=== PATIENT | female | born 1935 ===

== ENCOUNTER → 2016-09-08 | Outpatient (CLI) | payer MEDICARE, BC ==
[~2016-09-08] MED LIST: ASPIRIN EC81 MG PO; FISH OIL300 MG PO; MULTI VITAMIN1 EACH PO; NACL TABS1 GM PO; OSCAL500 MG PO; PEPCID20 MG PO; PRILOSEC20 M1 PO; TOPROL XL25 MG PO; TYLENOL EXTRA500 MG PO; ZOCOR40 MG PO
== END | disposition disaster alternative care site (69) ==
LOC: LFPA 09:56
DX: R19.7 Diarrhea, unspecified (principal)